=== PATIENT | male | born 1955 | race Caucasian/White ===

== ENCOUNTER 2016-12-28 10:51 | Inpatient (IN) | payer OTHER ==
--- NOTE | 2016-12-28 11:10 | ED PDOC ---
Arrival/HPI - General Historian: Patient, Family, EMS - General Time Seen by Provider: 12/28/16 10:59 - History of Present Illness Narrative History of Present Illness (Text): 12/28/16 11:07 61 y/o male, pmh including gastritis/internal and external hemorrhoid/chronic on and off chest pain, biba c/o fatigue and tired x 3 days. Pt. had endoscope and colonoscopy done earlier this year show he has moderate gastritis and esophogitis along with internal/external hemorrhoids, seen by Dr. Trivedi about 6 days ago show hgb 7.9 which advised him to come to the ER. Pt. was at home this morning feeling fatigue, tired and almost passed out which caught him and call the ambulance to come to the ER. Pt. has no head or neck injury, no loss of consciousness, able to recall the whole event, stated that he has bloody bleeding from the rectum region with no rectal pain, no abdominal pain. Pt. has no abdominal pain, no chest pain or shortness of breath, no night sweat , no dizziness, no numbness or tingling, no other medical or psychological complaints. (Kenton Santos) Past Medical History - Provider Review Nursing Documentation Reviewed: Yes Family/Social History - Physician Review Nursing Documentation Reviewed: Yes Family/Social History: Unknown Family HX Allergies/Home Meds Allergies/Adverse Reactions: Allergies No Known Allergies Allergy (Verified 12/28/16 11:12) Home Medications: Home Meds Medication Instructions Recorded Confirmed Unobtainable 12/28/16 12/28/16 Review of Systems - Review of Systems Constitutional: Fatigue. absent: Fevers Eyes: absent: Vision Changes ENT: absent: Hearing Changes Respiratory: absent: SOB, Cough Cardiovascular: absent: Chest Pain, Palpitations Gastrointestinal: absent: Abdominal Pain, Nausea, Vomiting Musculoskeletal: absent: Arthralgias, Back Pain Skin: absent: Rash, Pruritis Neurological: absent: Headache, Dizziness Psychiatric: absent: Anxiety, Depression Physical Exam - Systems Exam Head: Present: Atraumatic, Normocephalic Pupils: Present: PERRL Extroacular Muscles: Present: EOMI Conjunctiva: Present: Normal Mouth: Present: Moist Mucous Membranes Neck: Present: Normal Range of Motion Respiratory/Chest: Present: Clear to Auscultation, Good Air Exchange. No: Respiratory Distress, Accessory Muscle Use Cardiovascular: Present: Regular Rate and Rhythm, Normal S1, S2. No: Murmurs Abdomen: Present: Normal Bowel Sounds. 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 Guaiac negative. ). No: Occult Blood, Rectal Tenderness, Gross Blood, Melena, Fissures, Nodule/Mass/Lesions Back: Present: Normal Inspection Upper Extremity: Present: Normal Inspection. No: Cyanosis, Edema Lower Extremity: Present: Normal Inspection. No: Edema Neurological: Present: GCS=15, CN II-XII Intact, Speech Normal Skin: Present: Warm, Dry, Cold, Pale. No: Rashes, Normal Color Psychiatric: Present: Alert, Oriented x 3, Normal Insight, Normal Concentration Vital Signs Temp Pulse Resp BP Pulse Ox 12/28/16 15:21 97.9 F 70 18 141/80 12/28/16 14:46 98.1 F 68 17 137/75 12/28/16 14:31 98.2 F 71 18 144/73 12/28/16 12:45 69 18 125/71 98 12/28/16 11:55 75 18 128/75 98 12/28/16 10:51 97.9 F 78 18 130/80 100 Medical Decision Making - Lab Interpretations I have reviewed the lab results: Yes Interpretation: Abnormal lab values (hgb 7.7) - RAD Interpretation Precision Dancer: Radiologist - EKG Interpretation Interpreted by ED Physician: Yes Type: 12 lead EKG ED Course and Treatment: 12/28/16 12:52 Patient seen and evaluated with PA. In ED he is not hypotensive or tachycardic with monitoring. Abdomen is soft and nontender. Hemorrhoids noted on exam but no active bleeding noted currently. He is currently neurologically intact. Denies chest pain or sob. EKG unremarkable. Patient is noted to be anemic, in light of bleeding history and syncope will admit to telemetry bed and transfuse patient. [facility] 12/28/16 11:11 -labs/ua/type and screen -ekg -chest xray -IVF -Guaiac negative, there is no active bleeding. -Fall Risk Protocol 12/28/16 12:31 -EKG: NSR @ 67 BPM, no ST elevation or depression, no T wave inversion. -Chest xray show: no active diseaase -Labs are non-significant except: Hgb 7.7 -Blood transfusion verbal and written consent obtained and signed by the patient. -IV pepcid/benadryl/tylenol ordered. -Dr. Trivedi paged for admission to telemetry. -Case discussed and examined with DR. Elkins, he agreed on the admission and will put in the admission order. 12/28/16 12:36 -I spoke to Dr. Trivedi, discussed about the case/labs/radiology result, awared of the care and knows the patient, request Dr. Napier as routine consult, agreed on the 2 units of PRBC -I discussed with the patient/family and agreed to be admitted. . 12/28/16 15:51 -UA show no UTI. (Kenton Santos) - Lab Interpretations Lab Results: 12/28/16 11:53 12/28/16 11:53 Lab Results 12/28/16 11:53: Blood Type A NEGATIVE, Antibody Screen Negative, Crossmatch See Detail, BBK History Checked No verified bt 12/28/16 11:53: Sodium 140, Potassium 4.5, Chloride 106, Carbon Dioxide 25, Anion Gap 14, BUN 17, Creatinine 1.1, Est GFR ( Amer) > 60, Est GFR (Non- Af Amer) > 60, Random Glucose 85, Calcium 8.6, Total Bilirubin 0.4, AST 30, ALT 29, Alkaline Phosphatase 38, Lactate Dehydrogenase 341, Total Creatine Kinase 105, Troponin I < 0.01, NT-Pro-B Natriuret Pep 145, Total Protein 6.8, Albumin 4.0, Globulin 2.9, Albumin/Globulin Ratio 1.4 12/28/16 11:53: PT 10.6, INR 0.98, APTT 20.8 L 12/28/16 11:53: WBC 5.7, RBC 3.61, Hgb 7.7 L, Hct 25.4 L, MCV 70.4 L, MCH 21.3 L , MCHC 30.3 L, RDW 15.7 H, Plt Count 251, MPV 9.4, Gran % 75.4 H, Lymph % (Auto ) 18.1 L, [place] % (Auto) 5.5, Eos % (Auto) 0.5 L, Baso % (Auto) 0.5, Gran # 4.28 , Lymph # 1.0 L, [place] # 0.3, Eos # 0.0, Baso # 0.03 - RAD Interpretation Radiology Orders: 12/28/16 11:22 CHEST PORTABLE [RAD] Stat HISTORY: medical clearance COMPARISON: No prior. FINDINGS: LUNGS: No active pulmonary disease. PLEURA: No significant pleural effusion identified, no pneumothorax apparent. CARDIOVASCULAR: Normal. OSSEOUS STRUCTURES: No significant abnormalities. VISUALIZED UPPER ABDOMEN: Normal. OTHER FINDINGS: None. IMPRESSION: No active disease. (Kenton Santos) - EKG Interpretation EKG Interpretation (Text): 12/28/16 12:07 NSR @ 67 BPM, no ST elevation or depression, no T wave inversion. (Kenton Santos) - Medication Orders Current Medication Orders: Sodium Chloride (Sodium Chloride 0.9%) 1,000 mls @ 100 mls/hr IV .Q10H TRACI Last Admin: 12/28/16 12:44 Dose: 100 mls/hr eMAR Start Stop Document 12/28/16 12:44 AB (Rec: 12/28/16 12:44 AB [id number]) Intravenous Solution Start Date 12/28/16 Start Time 12:44 End Date 12/28/16 Discontinued Medications Acetaminophen (Tylenol 325mg Tab) 650 mg PO ONCE STA Stop: 12/28/16 12:28 Last Admin: 12/28/16 12:41 Dose: 650 mg MAR Pain/Vitals Document 12/28/16 12:41 AB (Rec: 12/28/16 12:44 AB [id number]) Pain Reassessment Is This A Pain ReAssessment? No Sleep Is patient sleeping during reassessment? No Presence of Pain Presence of Pain No Diphenhydramine HCl (Benadryl) 25 mg PO ONCE ONE Stop: 12/28/16 12:28 Last Admin: 12/28/16 12:44 Dose: 25 mg Famotidine (Pepcid) 20 mg IVP STAT STA Stop: 12/28/16 11:48 Last Admin: 12/28/16 12:14 Dose: 20 mg IVP Administration Document 12/28/16 12:14 AB (Rec: 12/28/16 12:15 AB [id number]) Charges for Administration # of IVP Administrations 1 Sodium Chloride (Sodium Chloride 0.9%) 1,000 mls @ 1,000 mls/hr IV .Q1H STA Stop: 12/28/16 12:46 Last Admin: 12/28/16 12:15 Dose: 1,000 mls/hr eMAR Start Stop Document 12/28/16 12:15 AB (Rec: 12/28/16 12:16 AB [id number]) Intravenous Solution Start Date 12/28/16 Start Time 12:15 End Date 12/28/16 End time 13:15 Total Infusion Time 60 - PA / WORSHIP DIRECTOR / Resident Statement MD/DO has reviewed & agrees with the documentation as recorded. MD/DO has examined the patient and agrees with the treatment plan. Disposition/Present on Arrival - Present on Arrival Any Indicators Present on Arrival: No History of DVT/PE: No History of Uncontrolled Diabetes: No Urinary Catheter: No History of Decub. Ulcer: No - Disposition Have Diagnosis and Disposition been Completed?: Yes Disposition Time: 12:09 Patient Plan: Admission - Disposition Diagnosis: Signs and symptoms of anemia, Near syncope Disposition: HOSPITALIZED Patient Problems: Current Active Problems Problem Status Onset Near syncope Acute Signs and symptoms of anemia Acute Condition: GUARDED
[2016-12-28 11:41] VITALS: BMI 33.6
[2016-12-28] MEDS ORDERED: Sodium Chloride 0.9% 1,000 ML IV STA (11:47)
[2016-12-28 11:58] LABS: BASO # 0.03 K/mm3 (0.0-2.0); BASO % 0.5 % (0.0-3.0); EOS % 0.5 % (1.5-5.0); GRAN # 4.28 (1.4-6.5); GRAN % 75.4 % (50.0-68.0); HEMATOCRIT 25.4 % (42.0-52.0); LYMPH % 18.1 % (22.0-35.0); MEAN CELL VOLUME 70.4 fl (80.0-105.0); MEAN CORPUSCULAR HEMOGLOBIN 21.3 pg (25.0-35.0); MEAN CORPUSCULAR HGB CONC 30.3 g/dl (31.0-37.0); MEAN PLATELET VOLUME 9.4 fl (7.0-11.0); MONO # 0.3 (0.1-0.6); MONO % 5.5 % (1.0-6.0); RED CELL DISTRIBUTION WIDTH 15.7 % (11.5-14.5); WHITE BLOOD COUNT 5.7 10^3/ul (4.5-11.0)
[2016-12-28 12:07] LABS: ALB/GLOB RATIO 1.4 (1.1-1.8); ALKALINE PHOSPHATASE 38 U/L (38-126); ALT/SGPT 29 U/L (7-56); AST/SGOT 30 U/L (17-59); BILIRUBIN,TOTAL 0.4 mg/dL (0.2-1.3); BLOOD UREA NITROGEN 17 mg/dL (7-21); CALCIUM 8.6 mg/dL (8.4-10.5); CARBON DIOXIDE 25 mmol/L (21-33); CHLORIDE 106 mmol/L (98-107); GFR AFRICAN-AMERICAN > 60; GLUCOSE,RANDOM 85 mg/dL (70-110); POTASSIUM 4.5 mmol/L (3.6-5.0); SODIUM 140 mmol/L (132-148); TOTAL PROTEIN 6.8 g/dL (5.8-8.3)
[2016-12-28 12:08] LABS: INR 0.98 (0.93-1.08); PARTIAL THROMBOPLASTIN TIME 20.8 Seconds (23.7-30.8)
[2016-12-28 12:19] LABS: TROPONIN I < 0.01 ng/mL
[2016-12-28] MEDS: Sodium Chloride 0.9% 1,000 ML IV SCH ×2 (12:44→23:24)
--- NOTE | 2016-12-28 12:45 | RAD ---
HISTORY: medical clearance COMPARISON: No prior. FINDINGS: LUNGS: No active pulmonary disease. PLEURA: No significant pleural effusion identified, no pneumothorax apparent. CARDIOVASCULAR: Normal. OSSEOUS STRUCTURES: No significant abnormalities. VISUALIZED UPPER ABDOMEN: Normal. OTHER FINDINGS: None. IMPRESSION: No active disease.
[2016-12-28 15:46] LABS: URINE APPEARANCE CLEAR (CLEAR); URINE BILIRUBIN NEGATIVE (NEGATIVE); URINE BLOOD NEGATIVE (NEGATIVE); URINE COLOR YELLOW (YELLOW); URINE GLUCOSE (UA) NEGATIVE (NEGATIVE); URINE KETONE NEGATIVE (NEGATIVE); URINE LEUKOCYTE ESTERASE NEGATIVE Leu/uL (NEGATIVE); URINE PROTEIN NEGATIVE mg/dL (<30 mg/dL); URINE UROBILINOGEN 0.2 E.U./dL (<1 E.U./dL)
--- NOTE | 2016-12-28 19:11 | CARD ---
APPROVED REPORT EKG Measurement Heart [id number] <Conclusion> Normal sinus rhythm Normal ECG
[2016-12-28] MEDS ORDERED: Pneumococcal 23-Valent Vaccine IM ONE (19:28)
[2016-12-28] MEDS ORDERED: Iohexol 240 (50 ml) ONE (20:51)
--- NOTE | 2016-12-28 23:33 | HP ---
HISTORY OF PRESENT ILLNESS: The patient is 61 years old, known to me from office practice. The patient went to Dr. Napier almost a week ago because he was complaining of rectal bleeding off and on going on for two months. He went to see Dr. Napier because he was having palpitation and shortness of breath. Dr. Napier referred him to me to check him out if he is not anemic. We did his blood work. His hemoglobin was found to be 7.9 in office. He was advised to go to emergency room for possible blood transfusion, but because of his job situation he could not go, so he showed up to emergency room today for further evaluation. The patient states he has been having intermittent rectal bleeding going on for 2 months, he states same thing happened in the past. Denies any abdominal pain. No history of nausea or vomiting. Complains of having constipation of unknown. The patient's last colonoscopy was 12/05/2012, it was done by Dr. Kyle Devine in [place], [place]. At that point, he was told that he has gastroesophageal reflux disease and he has external and internal hemorrhoids; otherwise, there was no other significant finding. PAST MEDICAL HISTORY: His significant past medical history for: 1. Hyperlipidemia. 2. Gout. 3. Hypertension. 4. Benign prostatic hypertrophy. 5. Chronic left knee pain. 6. History of depression. ALLERGIES: HE IS NOT ALLERGIC TO ANY MEDICATIONS. PAST SURGICAL HISTORY: He never had surgery in the past. 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 Denies smoking, drinking, or alcohol use. MEDICATIONS: Medication at home, he is on: 1. Voltaren gel. 2. Zoloft 50 mg daily. 3. Flomax 0.4 daily. 4. Enalapril 10 mg daily. 5. Allopurinol 300 daily 6. Mobic 15 mg daily. 7. Simvastatin 20 mg daily. REVIEW OF SYSTEMS: Significant for rectal discomfort and constipation at time, complaint of having generalized weakness and shortness of breath. PHYSICAL EXAMINATION: GENERAL: On examination, he is awake and alert, communicative. VITAL SIGNS: He is afebrile. Pulse 82, respirations 20, blood pressure 152/86. LUNGS: Bilateral fair airflow. No rhonchi or crackles. HEART: S1 and S2 audible. ABDOMEN: Soft, nontender. No rebound or guarding. NEUROLOGICAL: The patient is awake and alert, communicative, ambulatory. LABORATORY EXAM: WBC 5.7, hemoglobin 7.7, hematocrit 25.4, platelet of 251. PT is 10.6, INR 0.98. Chemistry, sodium 140, potassium 4.5, chloride 106, CO2 25, BUN 17, creatinine 1.1. Blood sugar of 85. LFTs are within normal limit. Urinalysis is unremarkable. X-ray chest is unremarkable. ASSESSMENT: 1. Symptomatic anemia secondary to rectal bleeding. His last colonoscopy was back in 11/2012. He was found to have internal and external hemorrhoid. 2. Hypertension. 3. Hyperlipidemia. 4. History of gout. PLAN: We will transfuse two packed RBCs. Resume his medications. I will request Dr. Felton to see, evaluate the patient for rectal bleeding. We will follow up his CBC and CMP in a.m. Milton Trivedi MD
--- NOTE | 2016-12-29 00:18 | CT ---
EXAM: CT Abdomen and Pelvis Without Intravenous Contrast CLINICAL HISTORY: 61 years old, male; Signs and symptoms; Other: Rectal bleeding TECHNIQUE: Axial computed tomography images of the abdomen and pelvis without intravenous contrast. All CT scans at this facility use one or more dose reduction techniques, viz.: automated exposure control; ma/kV adjustment per patient size (including targeted exams where dose is matched to indication; i.e. head); or iterative reconstruction technique. Coronal and sagittal reformatted images were created and reviewed. COMPARISON: No relevant prior studies available. FINDINGS: Limitations: Lack of intravenous contrast. Lower thorax: Mild cardiomegaly. RIGHT middle lobe calcified granuloma. ABDOMEN: Liver: Unremarkable. Gallbladder and bile ducts: No calcified stones. No ductal dilation. Pancreas: Unremarkable. No ductal dilation. Spleen: No splenomegaly. Adrenals: No mass. Kidneys and ureters: Several renal calculi. Probable RIGHT renal cyst. No hydronephrosis. Stomach and bowel: Few scattered diverticula within colon. No associated inflammatory stranding. No definite mural thickening. No obstruction. Appendix: Normal caliber. No inflammation. PELVIS: Bladder: 0.8 x 0.9 x 0.7 cm calculus vs calcified lesion within bladder. Reproductive: Enlarged prostate gland. ABDOMEN and PELVIS: Intraperitoneal space: No significant fluid collection. No free air. Bones/joints: Degenerative changes of spine. No acute fracture. Soft tissues: Small RIGHT inguinal hernia containing fat. Vasculature: Mild atherosclerotic disease. No aneurysm. Lymph nodes: Multiple calcification or calcified lymph nodes within mesentery. IMPRESSION: 1. Nonobstructing renal calculi. 2. Bladder calculus vs calcified lesion. Clinical correlation is needed. 3. Incidental/non-acute findings are described above.
[2016-12-29 00:49] VITALS: RESP 18
[2016-12-29 06:16] VITALS: O2SAT 99
[2016-12-29 06:18] LABS: BASO # 0.05 K/mm3 (0.0-2.0); BASO % 0.8 % (0.0-3.0); EOS # 0.2 (0.0-0.7); EOS % 2.6 % (1.5-5.0); GRAN # 4.09 (1.4-6.5); GRAN % 67.4 % (50.0-68.0); LYMPH # 1.4 (1.2-3.4); LYMPH % 22.4 % (22.0-35.0); MEAN CELL VOLUME 72.9 fl (80.0-105.0); MEAN CORPUSCULAR HEMOGLOBIN 22.9 pg (25.0-35.0); MEAN CORPUSCULAR HGB CONC 31.4 g/dl (31.0-37.0); MEAN PLATELET VOLUME 9.5 fl (7.0-11.0); MONO # 0.4 (0.1-0.6); MONO % 6.8 % (1.0-6.0); RED CELL DISTRIBUTION WIDTH 16.3 % (11.5-14.5); WHITE BLOOD COUNT 6.1 10^3/ul (4.5-11.0)
[2016-12-29 06:41] LABS: ALB/GLOB RATIO 1.4 (1.1-1.8); ALKALINE PHOSPHATASE 39 U/L (38-126); ALT/SGPT 21 U/L (7-56); AST/SGOT 24 U/L (17-59); BILIRUBIN,TOTAL 0.7 mg/dL (0.2-1.3); BLOOD UREA NITROGEN 16 mg/dL (7-21); CALCIUM 8.4 mg/dL (8.4-10.5); CARBON DIOXIDE 24 mmol/L (21-33); CHLORIDE 108 mmol/L (98-107); CHOLESTEROL 137 mg/dL (130-200); GFR AFRICAN-AMERICAN > 60; GLUCOSE,RANDOM 98 mg/dL (70-110); MAGNESIUM 1.9 mg/dL (1.7-2.2); PHOSPHOROUS 3.8 mg/dL (2.5-4.5); POTASSIUM 4.1 mmol/L (3.6-5.0); SODIUM 141 mmol/L (132-148); TOTAL PROTEIN 6.4 g/dL (5.8-8.3)
--- NOTE | 2016-12-29 08:47 | CON ---
DATE: 12/28/2016 REASON FOR CONSULTATION: Follow up rectal bleed, after that the patient had felt dizzy and fell down in the bathroom. Cardiac evaluation, rule out syncope. BRIEF CLINICAL HISTORY: This is a 61-year-old male with a past medical history significant for hemorrhoid and chronic bleeding from the hemorrhoid, it is off and on; recently, the patient had more bleeding and dropped the hemoglobin to 7.7. This morning, the patient went to the bathroom, felt dizzy and fell down, was brought here. Denies any chest pain, shortness of breath, any palpitations, but though recently the patient is complaining of some dyspnea on exertion, but denies any chest pain. PAST MEDICAL HISTORY: Significant for hypertension, but off medication because the patient is running low blood pressure. SOCIAL HISTORY: Denies smoking. Denies any history of alcohol abuse. PAST SURGICAL HISTORY: No significant history of surgery except the patient had a colonoscopy and biopsy done of the hemorrhoid. The patient had endoscopy earlier at the beginning of this year, has gastritis and esophagitis and also hemorrhoid. FAMILY HISTORY: No history of definite coronary artery disease. CURRENT MEDICATIONS: The patient is supposed to take antihypertensive medication, but since the patient has had low blood pressure, he stopped taking the medication. REVIEW OF SYSTEMS: As per HPI. PHYSICAL EXAMINATION: As follows, VITAL SIGNS: Temperature afebrile, heart rate 82, blood pressure 152/86. HEENT: PERRLA intact. NECK: Supple. No carotid bruit or thyromegaly. CHEST: Clear to auscultation. HEART: S1 and S2 regular. ABDOMEN: Soft. EXTREMITIES: Clubbing and cyanosis negative. LABORATORY DATA: EKG shows normal sinus at 67. Blood workup as follows: WBC , hemoglobin 7.7, hematocrit 25.7, and platelet count 251. Chemistry shows sodium 140, potassium 4.0, chloride 105, carbon dioxide 27, anion gap 14, BUN 17, creatinine 1.1. Troponin 0.01. IMPRESSION: Severe anemia, gastrointestinal bleed, rectal bleed, syncope, near syncope felt secondary to orthostatic hypotension secondary to gastrointestinal bleed. RECOMMENDATION: Monitor H and H. If it goes below 7, consider packed RBCs transfusion. GI evaluation. We will get echo to assess LV function. I doubt he has a coronary event. We will follow with you. We will get echo. Once the hemoglobin is around 10 and stops bleeding, we will further discuss as outpatient. Thank you for providing me the opportunity in taking care of Mr. Forrest Thomas. We will get lipid profile, TSH, hemoglobin A1c. Continue IV fluid for now. Audie Alvarez MD
[2016-12-29] MEDS: Sodium Chloride 0.9% 1,000 ML IV SCH (09:39)
[2016-12-29] MEDS ORDERED: POLYETHYLENE GLYCOL 3350 17 GM/Dose PACKET PO SCH (10:00)
--- NOTE | 2016-12-29 11:32 | CP.PCM.PCO ---
Physician Communication Note - Physician Communication Note Physician Communication Note: Severe Hemorrhoidal bleeding-anemia(2UPRBC)-needs hemorrhoidectomy!
--- NOTE | 2016-12-29 11:43 | CP.PCM.CON ---
<Ann-Marie Almaraz - Last Filed: 12/29/16 13:53> History of Present Illness - History of Present Illness History of Present Illness: Seen and examined at the bed earlier today, the was reviewed. Request for GI consult is for GI bleed. HPI: This is a 61-year-o with a past medical hyperlipidemia, chronic knee pain , hypertension, gout, was sent to the emergency room by a traffic court referee for abnormal lab. The patient had been complaining for 2 months, had blood work, and found to have a hemoglobin of 7.9. The patient denies nausea, vomiting, or abdominal pain. He did state that he had passed out in bathroom and had a bloody BM at one time. He endorses that he had a bloody BM this am. He had a colonoscopy November 2012,, it was done in [facility] by Dr. Kyle Bay. He was told he had internal and external and also had GERD. Denies weight loss, anorexia, SOB or chest pain. He did feel weak and tired prior to admission. He denies NSAID use, he is on meloxicam for bone pain. On rectal exam in ER patient was found to have hemorrhoids, no acute findings. He received 2 units of packed RBC last night . had CT scan on admission revealing diverticulosis, bladder calculus, calcified lymph nodes, no acute abdominal findings. Past medical history:Gout, hypertension, BPH, Hemorrhoids, Chronic left knee pain,, hyperlipidemia, history of depression Past surgical history: Denies Family history: Noncontributory Allergies: No known drug allergies Social history: Denies smoking, EtOH or substance abuse Medications: Reviewed as per MAR. ROS: Systems review took positive finding see HPI Past Patient History - Past Social History Smoking Status: Never Smoked - CARDIAC Hx Cardiac Disorders: Yes (chronic intermittent chest pain) Hx Hypercholesterolemia: Yes Hx Hypertension: Yes - PULMONARY Hx Respiratory Disorders: No - NEUROLOGICAL Hx Neurological Disorder: No - HEENT Hx HEENT Problems: No - RENAL Hx Kidney Stones: Yes ("yrs ago") - ENDOCRINE/METABOLIC Hx Endocrine Disorders: No - HEMATOLOGICAL/ONCOLOGICAL Hx Anemia: Yes - INTEGUMENTARY Hx Dermatological Problems: No - MUSCULOSKELETAL/RHEUMATOLOGICAL Hx Falls: Yes (fell today in bathroom) - GASTROINTESTINAL Hx Gastrointestinal Disorders: Yes (gastritis, hemorrhoids internal and external ) Other/Comment: rectal bleeding on and off x 5 yrs from hemorrhoids - GENITOURINARY/GYNECOLOGICAL Hx Prostate Problems: Yes (elevated psa/enlarged/bx neg) - PSYCHIATRIC Hx Substance Use: No - SURGICAL HISTORY Hx Surgeries: Yes (hemorrhoid bx, prostate bx) - ANESTHESIA Hx Anesthesia: No Hx Anesthesia Reactions: No Hx Malignant Hyperthermia: No Meds Allergies/Adverse Reactions: Allergies Allergy/AdvReac Type Severity Reaction Status Date / Time No Known Allergies Allergy Verified 12/28/16 11:12 - Medications Medications: Current Medications Acetaminophen (Tylenol 325mg Tab) 650 mg PO Q6H PRN PRN Reason: Fever >100.4 F Sodium Chloride (Sodium Chloride 0.9%) 1,000 mls @ 100 mls/hr IV .Q10H [facility] Last Admin: 12/29/16 09:39 Dose: 100 mls/hr Lisinopril (Zestril) 10 mg PO DAILY [facility] Last Admin: 12/29/16 09:39 Dose: 10 mg Pantoprazole Sodium (Protonix Inj) 40 mg IVP DAILY [facility] Polyethylene Glycol (Miralax) 17 gm PO DAILY [facility] Last Admin: 12/29/16 09:40 Dose: 17 gm Sertraline HCl (Zoloft) 50 mg PO DAILY [facility] Last Admin: 12/29/16 09:39 Dose: 50 mg Tamsulosin HCl (Flomax) 0.4 mg PO DAILY [facility] Last Admin: 12/29/16 09:39 Dose: 0.4 mg Physical Exam - Constitutional Appears: No Acute Distress - Head Exam Head Exam: NORMOCEPHALIC - Eye Exam Eye Exam: Normal appearance. absent: Scleral icterus - ENT Exam ENT Exam: Mucous Membranes Moist - Neck Exam Neck exam: Positive for: Normal Inspection - Respiratory Exam Respiratory Exam: NORMAL BREATHING PATTERN. absent: Respiratory Distress - Cardiovascular Exam Cardiovascular Exam: +S1, +S2 - GI/Abdominal Exam GI & Abdominal Exam: Normal Bowel Sounds, Soft. absent: Guarding, Organomegaly , Tenderness - Neurological Exam Neurological exam: Alert, Oriented x3 - Skin Skin Exam: Dry (thank you thanks), Warm (U with their already good.) Results - Vital Signs Recent Vital Signs: Last Vital Signs Temp 98.7 F 12/29/16 06:00 Pulse 76 12/29/16 09:39 Resp 18 12/29/16 06:00 BP 119/84 12/29/16 09:39 Pulse Ox 99 12/29/16 06:00 - Labs Result Diagrams: 12/29/16 05:30 12/29/16 05:30 Labs: Laboratory Results - last 24 hr 12/28/16 12/29/16 12/29/16 15:30 05:30 05:30 WBC 6.1 RBC 3.98 Hgb 9.1 L Hct 29.0 L MCV 72.9 L MCH 22.9 L MCHC 31.4 RDW 16.3 H Plt Count 219 MPV 9.5 Gran % 67.4 Lymph % (Auto) 22.4 [place] % (Auto) 6.8 H Eos % (Auto) 2.6 Baso % (Auto) 0.8 Gran # 4.09 Lymph # 1.4 Richardson # 0.4 Eos # 0.2 Baso # 0.05 Sodium 141 Potassium 4.1 Chloride 108 H Carbon Dioxide 24 Anion Gap 13 BUN 16 Creatinine 1.3 Est GFR ( Amer) > 60 Est GFR (Non-Af Amer) 57 Random Glucose 98 Calcium 8.4 Phosphorus 3.8 Magnesium 1.9 Total Bilirubin 0.7 AST 24 ALT 21 Alkaline Phosphatase 39 Total Protein 6.4 Albumin 3.7 Globulin 2.7 Albumin/Globulin Ratio 1.4 Triglycerides 73 Cholesterol 137 LDL Cholesterol Direct 65 HDL Cholesterol 61 H TSH 3rd Generation Urine Color Yellow Urine Appearance Clear Urine pH 6.0 Ur Specific [place] 1.010 Urine Protein Negative Urine Glucose (UA) Negative Urine Ketones Negative Urine Blood Negative Urine Nitrate Negative Urine Bilirubin Negative Urine Urobilinogen 0.2 Ur Leukocyte Esterase Negative 12/29/16 05:30 WBC RBC Hgb Hct MCV MCH MCHC RDW Plt Count MPV Gran % Lymph % (Auto) [place] % (Auto) Eos % (Auto) Baso % (Auto) Gran # Lymph # [place] # Eos # Baso # Sodium Potassium Chloride Carbon Dioxide Anion Gap BUN Creatinine Est GFR ( Amer) Est GFR (Non-Af Amer) Random Glucose Calcium Phosphorus Magnesium Total Bilirubin AST ALT Alkaline Phosphatase Total Protein Albumin Globulin Albumin/Globulin Ratio Triglycerides Cholesterol LDL Cholesterol Direct HDL Cholesterol TSH 3rd Generation 7.65 H Urine Color Urine Appearance Urine pH Ur Specific [place] Urine Protein Urine Glucose (UA) Urine Ketones Urine Blood Urine Nitrate Urine Bilirubin Urine Urobilinogen Ur Leukocyte Esterase Assessment & Plan - Assessment and Plan (Free Text) Assessment: ASSESSMENT: GI Bleed, rule out peptic ulcer disease, colon polyps, malignancy Anemia Syncope Chronic left knee pain HTN HLD Hemorrhoids GERD PLAN: Continue PPI Clear liquid diet monitor H&H pending echo Patient would benefit from EGD and colonoscopy, we will discuss with cardiology , if cleared we will plan for tomorrow if patient is optimal. Thank you for this consult and for allowing us to participate in patient's care , further recommendations based upon clinical course. Seen and discussed with Dr. Felton. <Yeyo Felton V - Last Filed: 12/29/16 23:07> Results - Vital Signs Recent Vital Signs: Last Vital Signs Temp 98.3 F 12/29/16 17:02 Pulse 74 12/29/16 17:02 Resp 18 12/29/16 17:02 BP 116/68 12/29/16 17:02 Pulse Ox 99 12/29/16 12:00 - Labs Result Diagrams: 12/29/16 05:30 12/29/16 05:30 Labs: Laboratory Results - last 24 hr 12/29/16 12/29/16 12/29/16 05:30 05:30 05:30 WBC 6.1 RBC 3.98 Hgb 9.1 L Hct 29.0 L MCV 72.9 L MCH 22.9 L MCHC 31.4 RDW 16.3 H Plt Count 219 MPV 9.5 Gran % 67.4 Lymph % (Auto) 22.4 [place] % (Auto) 6.8 H Eos % (Auto) 2.6 Baso % (Auto) 0.8 Gran # 4.09 Lymph # 1.4 Richardson # 0.4 Eos # 0.2 Baso # 0.05 Sodium 141 Potassium 4.1 Chloride 108 H Carbon Dioxide 24 Anion Gap 13 BUN 16 Creatinine 1.3 Est GFR ( Amer) > 60 Est GFR (Non-Af Amer) 57 Random Glucose 98 Calcium 8.4 Phosphorus 3.8 Magnesium 1.9 Total Bilirubin 0.7 AST 24 ALT 21 Alkaline Phosphatase 39 Total Protein 6.4 Albumin 3.7 Globulin 2.7 Albumin/Globulin Ratio 1.4 Triglycerides 73 Cholesterol 137 LDL Cholesterol Direct 65 HDL Cholesterol 61 H TSH 3rd Generation 7.65 H Attending/Attestation - Attestation I have personally seen and examined this patient.: Yes I have fully participated in the care of the patient.: Yes I have reviewed all pertinent clinical information: Yes Notes (Text): This is an addendum to GI progress report dictated by Ann-Marie Almaraz APN.The patient was seen and examined earlier. Medical records, lab studies, imagings were reviewed. Last 24 hours events reviewed. Agreed with the above treatment plan as outlined in Ann-Marie Almaraz APN's notes the with the addition of the following On examination abdomen soft and tenderness Had a detailed discussion the patient patient did have a colonoscopy in the past year. Patient is been taking nonsteroidal anti-inflammatory drugs and other possible etiologies should consider is upper GI bleeding Patient does have significant intermittent episodes of bright her prep rectum that could be from hemorrhoids In view of the history of using on and sterile anti-inflammatory drugs she would benefit from endoscopy and also colonoscopy to further evaluate the severe anemia The patient at length regarding the need for GI workup 12/29/16 23:03
--- NOTE | 2016-12-29 14:54 | CP.PCM.CON ---
<Georgina Sahu - Last Filed: 12/29/16 14:47> History of Present Illness - History of Present Illness History of Present Illness: Surgery Consult Note for Dr. Talley Patient is a 61 year old Male that presented to the ED yesterday due to a syncopal episode from painless bright red rectal bleeding. He reports a history of painless rectal bleeding for the past 2 months with the last episode being 3 weeks ago and colonoscopy revealing internal and external hemorrhoids. Denies any rectal pain or issues with bowel movements. ROS: Denies any lightheadedness, fevers, chills, night sweats, chest pain or palpitations, shortness of breath, nausea, vomiting, or diarrhea. PMH: BPH, Gout, HLD, HTN, Depression PSH: None Allergies: NKDA Social History: Denies alcohol use or smoking. Past Patient History - Past Social History Smoking Status: Never Smoked - CARDIAC Hx Cardiac Disorders: Yes (chronic intermittent chest pain) Hx Hypercholesterolemia: Yes Hx Hypertension: Yes - PULMONARY Hx Respiratory Disorders: No - NEUROLOGICAL Hx Neurological Disorder: No - HEENT Hx HEENT Problems: No - RENAL Hx Kidney Stones: Yes ("yrs ago") - ENDOCRINE/METABOLIC Hx Endocrine Disorders: No - HEMATOLOGICAL/ONCOLOGICAL Hx Anemia: Yes - INTEGUMENTARY Hx Dermatological Problems: No - MUSCULOSKELETAL/RHEUMATOLOGICAL Hx Falls: Yes (fell today in bathroom) - GASTROINTESTINAL Hx Gastrointestinal Disorders: Yes (gastritis, hemorrhoids internal and external ) Other/Comment: rectal bleeding on and off x 5 yrs from hemorrhoids - GENITOURINARY/GYNECOLOGICAL Hx Prostate Problems: Yes (elevated psa/enlarged/bx neg) - PSYCHIATRIC Hx Substance Use: No - SURGICAL HISTORY Hx Surgeries: Yes (hemorrhoid bx, prostate bx) - ANESTHESIA Hx Anesthesia: No Hx Anesthesia Reactions: No Hx Malignant Hyperthermia: No Meds Allergies/Adverse Reactions: Allergies Allergy/AdvReac Type Severity Reaction Status Date / Time No Known Allergies Allergy Verified 12/28/16 11:12 - Medications Medications: Current Medications Acetaminophen (Tylenol 325mg Tab) 650 mg PO Q6H PRN PRN Reason: Fever >100.4 F Sodium Chloride (Sodium Chloride 0.9%) 1,000 mls @ 100 mls/hr IV .Q10H [facility] Last Admin: 12/29/16 09:39 Dose: 100 mls/hr Levothyroxine Sodium (Synthroid) 25 mcg PO 0600 [facility] Lisinopril (Zestril) 10 mg PO DAILY [facility] Last Admin: 12/29/16 09:39 Dose: 10 mg Pantoprazole Sodium (Protonix Inj) 40 mg IVP DAILY [facility] Last Admin: 12/29/16 12:51 Dose: 40 mg Polyethylene Glycol (Miralax) 17 gm PO DAILY [facility] Last Admin: 12/29/16 09:40 Dose: 17 gm Polyethylene Glycol/Electrolytes (Golytely) 4,000 ml PO ONCE ONE Stop: 12/29/16 16:01 Sertraline HCl (Zoloft) 50 mg PO DAILY [facility] Last Admin: 12/29/16 09:39 Dose: 50 mg Tamsulosin HCl (Flomax) 0.4 mg PO DAILY [facility] Last Admin: 12/29/16 09:39 Dose: 0.4 mg Physical Exam - Constitutional Appears: Non-toxic, No Acute Distress - Head Exam Head Exam: ATRAUMATIC, NORMOCEPHALIC - Eye Exam Eye Exam: EOMI. absent: Conjunctival injection - Neck Exam Neck exam: Positive for: Full Rom - Respiratory Exam Respiratory Exam: absent: Accessory Muscle Use, Respiratory Distress - Cardiovascular Exam Cardiovascular Exam: Tachycardia - GI/Abdominal Exam GI & Abdominal Exam: Soft. absent: Guarding, Rebound, Rigid, Tenderness - Rectal Exam Rectal Exam: Hemorrhoids (internal and external non-tender). absent: Bloody Stool - Extremities Exam Extremities exam: Positive for: full ROM. Negative for: pedal edema - Neurological Exam Neurological exam: Alert, Oriented x3 - Skin Skin Exam: Dry, Intact, Normal Color, Warm Results - Vital Signs Recent Vital Signs: Last Vital Signs Temp 98.6 F 12/29/16 13:50 Pulse 75 12/29/16 13:50 Resp 18 12/29/16 13:50 BP 126/71 12/29/16 13:50 Pulse Ox 99 12/29/16 06:00 - Labs Result Diagrams: 12/29/16 05:30 12/29/16 05:30 Labs: Laboratory Results - last 24 hr 12/28/16 12/29/16 12/29/16 15:30 05:30 05:30 WBC 6.1 RBC 3.98 Hgb 9.1 L Hct 29.0 L MCV 72.9 L MCH 22.9 L MCHC 31.4 RDW 16.3 H Plt Count 219 MPV 9.5 Gran % 67.4 Lymph % (Auto) 22.4 [place] % (Auto) 6.8 H Eos % (Auto) 2.6 Baso % (Auto) 0.8 Gran # 4.09 Lymph # 1.4 [place] # 0.4 Eos # 0.2 Baso # 0.05 Sodium 141 Potassium 4.1 Chloride 108 H Carbon Dioxide 24 Anion Gap 13 BUN 16 Creatinine 1.3 Est GFR ( Amer) > 60 Est GFR (Non-Af Amer) 57 Random Glucose 98 Calcium 8.4 Phosphorus 3.8 Magnesium 1.9 Total Bilirubin 0.7 AST 24 ALT 21 Alkaline Phosphatase 39 Total Protein 6.4 Albumin 3.7 Globulin 2.7 Albumin/Globulin Ratio 1.4 Triglycerides 73 Cholesterol 137 LDL Cholesterol Direct 65 HDL Cholesterol 61 H TSH 3rd Generation Urine Color Yellow Urine Appearance Clear Urine pH 6.0 Ur Specific [place] 1.010 Urine Protein Negative Urine Glucose (UA) Negative Urine Ketones Negative Urine Blood Negative Urine Nitrate Negative Urine Bilirubin Negative Urine Urobilinogen 0.2 Ur Leukocyte Esterase Negative 12/29/16 05:30 WBC RBC Hgb Hct MCV MCH MCHC RDW Plt Count MPV Gran % Lymph % (Auto) [place] % (Auto) Eos % (Auto) Baso % (Auto) Gran # Lymph # [place] # Eos # Baso # Sodium Potassium Chloride Carbon Dioxide Anion Gap BUN Creatinine Est GFR ( Amer) Est GFR (Non-Af Amer) Random Glucose Calcium Phosphorus Magnesium Total Bilirubin AST ALT Alkaline Phosphatase Total Protein Albumin Globulin Albumin/Globulin Ratio Triglycerides Cholesterol LDL Cholesterol Direct HDL Cholesterol TSH 3rd Generation 7.65 H Urine Color Urine Appearance Urine pH Ur Specific [place] Urine Protein Urine Glucose (UA) Urine Ketones Urine Blood Urine Nitrate Urine Bilirubin Urine Urobilinogen Ur Leukocyte Esterase Assessment & Plan - Assessment and Plan (Free Text) Assessment: 61M with history of internal and external hemorrhoids with rectal bleeding and anemia. Plan: - transfuse PRBCs as needed - scheduled for outpatient hemorrhoidectomy on 01/02/[address] Talley. Georgina Sahu PGY-2 <Trevon Talley - Last Filed: 12/30/16 10:25> Results - Vital Signs Recent Vital Signs: Last Vital Signs Temp 98.3 F 12/29/16 17:02 Pulse 74 12/29/16 17:02 Resp 18 12/29/16 17:02 BP 116/68 12/29/16 17:02 Pulse Ox 99 12/29/16 12:00 - Labs Result Diagrams: 12/29/16 05:30 12/29/16 05:30 Assessment & Plan - Assessment and Plan (Free Text) Assessment: Patient had bleeding per rectum for 5 years Flexible sigmoidoscopy reveals bleeding Int Hemorrhoids T/X 2 U PRBC with Hgb 9.1 Pt very unsure if he wants surgery 12/30(OR) or OPD Office 01/02 [facility] Transfuse 1 Unit PRBC/Start Miralax Pt tells wifwe he eants to go mome now Office Rubber banding scheduled Tuesday 01/02 This consult done under my direct supervision Lorrie Talley MD FACS
[2016-12-29 14:57] VITALS: TEMP 98.3
[2016-12-29] MEDS ORDERED: Peg-Electrolyte Oral Soln 4L (Golytely) PO ONE (16:00)
--- NOTE | 2016-12-29 16:26 | CARD ---
APPROVED REPORT EXAM: Two-dimensional and M-mode echocardiogram with Doppler and color Doppler. INDICATION Syncope 2D DIMENSIONS Left Atrium (2D)4.6 (1.6-4.0cm)IVSd1.2 (0.7-1.1cm) LVDd4.4 (3.9-5.9cm)PWd1.1 (0.7-1.1cm) LVDs2.9 (2.5-4.0cm)FS (%) 33.5 % LVEF (%)62.5 (>50%) M-Mode DIMENSIONS Aortic Root3.60 (2.2-3.7cm)Aortic Cusp Exc.1.90 (1.5-2.0cm) Aortic Valve AoV Peak Wkcrsayz248.0cm/Martine Peak GR.8mmHg Mitral Valve MV E Xlamplgm22.8cm/sMV A Zkzzzoib96.1cm/sE/A ratio1.3 TDI Lateral E' Peak V9.16cm/sMedial E' Peak V8.38cm/sE/Lateral E'10.2 E/Medial E'11.2 Pulmonary Valve PV Peak Gpvhjcvj93.6cm/sPV Peak Grad.2mmHg Tricuspid Valve TR Peak Oyybyfxv165ox/sRAP [id number] Peak Gr.29mmHg [id number] LEFT VENTRICLE The left ventricle is normal size. There is normal left ventricular wall thickness. The left ventricular function is normal.EF-60-65% There is normal LV segmental wall motion. The left ventricular diastolic function is normal. No left ventricle thrombus noted on this study. There is no ventricular septal defect visualized. There is no left ventricular aneurysm. There is no mass noted in the left ventricle. RIGHT VENTRICLE The right ventricle is normal size. There is normal right ventricular wall thickness. The right ventricular systolic function is normal. ATRIA The left atrium is mildly dilated. The right atrium size is normal. The interatrial septum is intact with no evidence for an atrial septal defect. AORTIC VALVE The aortic valve is thickened but opens well. There is trace aortic regurgitation. There is no aortic valvular stenosis. There is no aortic valvular vegetation. MITRAL VALVE The mitral valve is thickened but opens well. Mitral regurgitation is mild. There is no mitral valve stenosis. There is no evidence of mitral valve prolapse. TRICUSPID VALVE The tricuspid valve leaflets are thickened or calcified, but open well. There is mild tricuspid regurgitation.RVSP-39 mmof Hg. There is no tricuspid valve stenosis. There is no tricuspid valve prolapse or vegetation. PULMONIC VALVE The pulmonary valve is normal in structure. There is trace pulmonic valvular regurgitation. There is no pulmonic valvular stenosis. GREAT VESSELS The aortic root is normal in size. The ascending aorta is normal in size. The pulmonary artery is normal. The IVC is normal in size and collapses >50% with inspiration. PERICARDIAL EFFUSION There is no pleural effusion. There is no pericardial effusion. <Conclusion> The left ventricle is normal size. There is normal left ventricular wall thickness. The left ventricular function is normal.EF-60-65% There is trace aortic regurgitation. Mitral regurgitation is mild. There is mild tricuspid regurgitation.RVSP-39 mmof Hg. The IVC is normal in size and collapses >50% with inspiration. There is no pericardial effusion.
[2016-12-29 17:03] VITALS: BP 116/68; PULSE 74
--- NOTE | 2016-12-29 19:14 | PN ---
DATE: 12/29/2016 REASON FOR CONSULTATION: Addendum to the initial progress note dictated this morning. REASON FOR ADDENDUM: Asked by Rosario, nurse practitioner of Dr. Wise to clear the patient for possible colonoscopy and endoscopy. No evidence of acute AL. No evidence of chest pain. No evidence of arrhythmia or congestive heart failure. No absolute contraindication for endoscopy. The patient is cleared to go for endoscopy and colonoscopy with for the procedure. We will also transfuse 1 unit of packed RBC. We will get echo to rule out any structural heart disease and we will discontinue telemetry. Thank you Dr. Wise for providing me the opportunity in taking care of patient, William. Thank you Dr. Trivedi for the opportunity in taking care of patient, William. Audie Alvarez MD
--- NOTE | 2016-12-29 20:18 | PN ---
DATE: 12/29/2016 REASON FOR CONSULTATION: Follow up rectal bleed, dizziness, cardiac evaluation, rule out syncope. SUBJECTIVE: The patient denies any chest pain, but complained of bleed again this morning and feels dizzy and again bleed from the hemorrhoid. OBJECTIVE: GENERAL: Not feeling dizzy today, but feeling very weak, not in apparent distress. VITAL SIGNS: As follows: Temperature afebrile, heart rate 75, blood pressure 126/71. HEENT: PERRLA. Extraocular muscles intact. NECK: No carotid bruits or thyromegaly. CHEST: Clear to auscultation. HEART: S1 and S2 positive. ABDOMEN: Soft. EXTREMITIES: Clubbing and cyanosis negative. Orthostatics not obtained as of yet. LABORATORY DATA: Blood workup as follows: WBC 6.8, hemoglobin 9.2, hematocrit 29.0, platelet count 219. Chemistry shows sodium 141, potassium 4.0, chloride 108, carbon dioxide 21, anion gap of 13, BUN 16, creatinine is 1.3. TSH 7.56, total cholesterol 137, LDL 65, HDL 61. IMPRESSION: Hypothyroidism, anemia secondary to rectal bleed, syncope secondary to rectal bleed, rule out orthostatic hypotension, rule out any structural heart disease, very unlikely. No evidence of acute myocardial infarction. RECOMMENDATIONS: We will give 1 unit of packed RBC because the patient bled this morning. We will try to get orthostatic hypotension, kept orthostatic. We will discontinue telemetry. We will echo. Thank you Dr. Serra for providing us the opportunity in taking care of patient, Forrest Thomas. Audie Alvarez MD
--- NOTE | 2016-12-30 02:58 | DS ---
HISTORY OF PRESENT ILLNESS: The patient is a 61-year-old, seen and examined. The patient state, although I instructed him to go to emergency room on 12/20/2016, but he stated he started to feel better. Yesterday morning, he had another episode of rectal bleeding. He felt very dizzy, almost passed out that is why he came to the emergency room. He was given two blood transfusion, feeling a lot better. PHYSICAL EXAMINATION: VITAL SIGNS: He is afebrile, pulse 81, respirations 18, and blood pressure 119/84. LUNGS: Bilateral clear air flow. No rhonchi or crackles. HEART: S1 and S2 audible. ABDOMEN: Soft and nontender. No rebound. No guarding. NEUROLOGIC: The patient is awake and alert. Able to communicate. LABORATORY DATA: WBC 6.1, hemoglobin 9.1, hematocrit 29, and platelets of 219. Chemistry; sodium 141, potassium 4.1, chloride 108, CO2 of 24, BUN 16, and creatinine 1.3. Blood sugar of 98. Urinalysis is unremarkable. Had CT scan of the abdomen and pelvis done that showed non-obstructing renal calculus, bladder calculus versus . Clinical correlation is recommended. ASSESSMENT: 1. Symptomatic anemia secondary to rectal bleeding and that is because of his known history of hemorrhoids. 2. Hypertension. 3. Hyperlipidemia. 4. History of benign prostatic hypertrophy. PLAN: The patient is on laxatives. We will continue him on IV fluids. Currently, he is on liquid diet. I will discuss plan with Dr. Felton and Dr. Elizabeth. The patient had colonoscopy in 2012. We will have to figure out if he needs colonoscopy prior to clipping of his hemorrhoid, since this is the source of bleeding should be done before he goes for colonoscopy. I would recommend to have colonoscopy prior to the procedure, but I will discuss with other consultants. Milton Trivedi MD
[2016-12-30] MEDS ORDERED: Levothyroxine 25 MCG TAB PO SCH (06:00)
== END 2016-12-29 18:16 | disposition home or self-care (01) | DRG 395 ==
LOC: ED 10:51 → ERH 13:03 → 2RNO 16:34
PROVIDERS: ADMIT Internal Medicine; ATTEND Internal Medicine
PROC: 30233N1 Transfusion of Nonautologous Red Blood Cells into Peripheral Vein, Percutaneous Approach (ICD-10-PCS; principal; 2016-12-28)
DX: K64.8 Other hemorrhoids (principal); I10 Essential (primary) hypertension; K64.4 Residual hemorrhoidal skin tags; D50.0 Iron deficiency anemia secondary to blood loss (chronic); W19.XXXA Unspecified fall, initial encounter; E03.9 Hypothyroidism, unspecified; I95.1 Orthostatic hypotension; K21.9 Gastro-esophageal reflux disease without esophagitis; E78.00 Pure hypercholesterolemia, unspecified; E78.5 Hyperlipidemia, unspecified; M25.569 Pain in unspecified knee; K57.90 Diverticulosis of intestine, part unspecified, without perforation or abscess without bleeding; K59.00 Constipation, unspecified; M10.9 Gout, unspecified; N21.0 Calculus in bladder; N40.0 Benign prostatic hyperplasia without lower urinary tract symptoms; Y92.002 Bathroom of unspecified non-institutional (private) residence as the place of occurrence of the external cause; Z87.442 Personal history of urinary calculi

== ENCOUNTER 2017-02-21 13:08 | Observation (INO) | payer OTHER ==
[2017-02-21 13:25] VITALS: BMI 27.2
[2017-02-21] MEDS ORDERED: Sodium Chloride 0.9% 1,000 ML IV STA (13:27)
--- NOTE | 2017-02-21 14:04 | RAD ---
HISTORY: rout med exam COMPARISON: 12/28/2016 FINDINGS: LUNGS: Minimal linear opacity at the right lung base as seen on prior examination as well, likely linear scar. No infiltrate. PLEURA: No significant pleural effusion identified, no pneumothorax apparent. CARDIOVASCULAR: Normal. OSSEOUS STRUCTURES: No significant abnormalities. VISUALIZED UPPER ABDOMEN: Normal. OTHER FINDINGS: None. IMPRESSION: No active disease.
[2017-02-21 14:14] LABS: VENOUS BLOOD GAS BASE EXCESS -1.1 mmol/L (0.0-2.0); VENOUS BLOOD PH 7.33 (7.32-7.43)
[2017-02-21 14:15] LABS: BASO # 0.02 K/mm3 (0.0-2.0); BASO % 0.4 % (0.0-3.0); EOS # 0.1 (0.0-0.7); EOS % 1.6 % (1.5-5.0); GRAN # 3.25 (1.4-6.5); GRAN % 66.5 % (50.0-68.0); LYMPH # 1.2 (1.2-3.4); LYMPH % 25.4 % (22.0-35.0); MEAN CELL VOLUME 69.8 fl (80.0-105.0); MEAN CORPUSCULAR HEMOGLOBIN 20.9 pg (25.0-35.0); MEAN PLATELET VOLUME 10.1 fl (7.0-11.0); MONO # 0.3 (0.1-0.6); MONO % 6.1 % (1.0-6.0); WHITE BLOOD COUNT 4.9 10^3/ul (4.5-11.0)
--- NOTE | 2017-02-21 14:18 | ED PDOC ---
Arrival/HPI - General Chief Complaint: Syncope Time Seen by Provider: 02/21/17 13:23 Historian: Patient, EMS, Other - History of Present Illness Narrative History of Present Illness (Text): 02/21/17 14:09 A 61 year old male, whose past medical history includes hypertension, hyperlipidemia, and BPH, brought into the emergency department by EMS from urologist office for evaluation after transurethral needle ablation of the prostate. Urologist reports patient was feeling better and recovered well after surgery. He was given oral gentamicin, 250 250 propofol and cipro. 30 minutes after the procedure patient had a syncopal episode and appeared cold and clammy. EMS found patient with stabe vital signs and unremarkable 12 lead EKG. Patient currently complains of dizziness but denies any fever, chills, nausea, vomiting, abdominal pain, chest pain, shortness of breath or any other complaints. Time/Duration: Prior to Arrival Symptom Course: Unchanged Quality: Other Context: Other Past Medical History - Provider Review Nursing Documentation Reviewed: Yes - Cardiac Hx Cardiac Disorders: Yes (chronic intermittent chest pain) Hx Hypertension: Yes - Pulmonary Hx Respiratory Disorders: No - Neurological Hx Neurological Disorder: No - HEENT Hx HEENT Disorder: No - Renal Hx Renal Disorder: No Hx Kidney Stones: Yes ("yrs ago") - Endocrine/Metabolic Hx Endocrine Disorders: No - Hematological/Oncological Hx Blood Disorders: No Hx Anemia: Yes - Integumentary Hx Dermatological Disorder: No - Musculoskeletal/Rheumatological Hx Musculoskeletal Disorders: No Hx Falls: Yes (fell today in bathroom) - Gastrointestinal Hx Gastrointestinal Disorders: Yes (gastritis, hemorrhoids internal and external ) Other/Comment: rectal bleeding on and off x 5 yrs from hemorrhoids - Genitourinary/Gynecological Hx Genitourinary Disorders: No Hx Prostate Problems: Yes (elevated psa/enlarged/bx neg) - Psychiatric Hx Psychophysiologic Disorder: No Hx Substance Use: No - Anesthesia Hx Anesthesia: No Hx Anesthesia Reactions: No Hx Malignant Hyperthermia: No Family/Social History - Physician Review Nursing Documentation Reviewed: Yes Family/Social History: No Known Family HX Smoking Status: Never Smoked Hx Alcohol Use: No Hx Substance Use: No Allergies/Home Meds Allergies/Adverse Reactions: Allergies No Known Allergies Allergy (Verified 02/21/17 13:25) Home Medications: Home Meds Medication Instructions Recorded Confirmed Allopurinol [Zyloprim] 300 mg PO DAILY 12/28/16 12/28/16 Atenolol [Tenormin] 12.5 mg PO DAILY 12/28/16 12/28/16 Cholecalciferol [Vitamin D] 50,000 unit PO QWK 12/28/16 12/28/16 Diclofenac Sodium [Voltaren] 1 % TP TID 12/28/16 12/28/16 Enalapril Maleate [Vasotec] 10 mg PO DAILY 12/28/16 12/28/16 Meloxicam [Mobic] 15 mg PO DAILY 12/28/16 12/28/16 Proctozone 1 appl TOP BID 12/28/16 12/28/16 Simvastatin [Zocor] 20 mg PO DAILY 12/28/16 12/28/16 Tamsulosin [Flomax] 0.4 mg PO HS 12/28/16 12/29/16 Review of Systems - Physician Review All systems were reviewed & negative as marked: Yes - Review of Systems Constitutional: absent: Fevers, Night Sweats Respiratory: absent: SOB Cardiovascular: Syncope. absent: Chest Pain Gastrointestinal: absent: Abdominal Pain, Nausea, Vomiting Neurological: Dizziness Physical Exam Vital Signs Reviewed: Yes Vital Signs Temp Pulse Resp BP Pulse Ox 02/21/17 14:36 94.8 F L 02/21/17 13:28 97.9 F 67 19 137/81 99 Temperature: Afebrile Blood Pressure: Normal Pulse: Regular Respiratory Rate: Normal Appearance: Positive for: Non-Toxic, Comfortable, Other (Pale appearing) Pain Distress: None Mental Status: Positive for: Alert and Oriented X 3 - Systems Exam Head: Present: Atraumatic, Normocephalic Pupils: Present: PERRL Extroacular Muscles: Present: EOMI Conjunctiva: Present: Normal Mouth: Present: Moist Mucous Membranes Neck: Present: Normal Range of Motion Respiratory/Chest: Present: Clear to Auscultation, Good Air Exchange. No: Respiratory Distress, Accessory Muscle Use Cardiovascular: Present: Regular Rate and Rhythm, Normal S1, S2. No: Murmurs Abdomen: Present: Normal Bowel Sounds. No: Tenderness, Distention, Peritoneal Signs Back: Present: Normal Inspection Upper Extremity: Present: Normal Inspection. No: Cyanosis, Edema Lower Extremity: Present: Normal Inspection. No: Edema Neurological: Present: GCS=15, CN II-XII Intact, Speech Normal Skin: Present: Warm, Dry, Pale. No: Rashes Psychiatric: Present: Alert, Oriented x 3, Normal Insight, Normal Concentration Medical Decision Making ED Course and Treatment: 02/21/17 14:09 Impression: A 61 year old male brought in for syncopal episode after procedure. Patient currently complains of dizziness. Plan: -- Head CT -- Chest xray -- EKG -- Labs -- Blood and Urine culture -- Urinalysis -- IV fluids -- Reassess and disposition Progress Notes: EKG shows NSR at 62 BPM with no arrhythmogenic, no ischemic ST segments. Interpreted by me. Report Date : 02/21/2017 14:02:55 Procedure: Chest xray Dictator : Rob Gunn MD IMPRESSION: No active disease. Report Date : 02/21/2017 14:30:57 PROCEDURE: CT HEAD WITHOUT CONTRAST. Dictator : Cliff Ayers MD IMPRESSION: Normal CT of the Head. - Lab Interpretations Lab Results: 02/21/17 14:07 02/21/17 14:07 Lab Results 02/21/17 14:45: POC Glucose (mg/dL) 127 H 02/21/17 14:30: Urine Color Red, Urine Appearance Cloudy, Urine pH 6.5, Ur Specific [place] 1.015, Urine Protein >=300 H, Urine Glucose (UA) 100 H, Urine Ketones Trace H, Urine Blood Large H, Urine Nitrate Positive H, Urine Bilirubin Negative, Urine Urobilinogen 1.0 H, Ur Leukocyte Esterase Negative, Urine RBC Tntc, Urine WBC 1 - 3, Ur Epithelial Cells 0 - 2, Urine Bacteria Few 02/21/17 14:07: Sodium 139, Chloride 108 H, Potassium 4.2, Carbon Dioxide 21, Anion Gap 15, BUN 18, Creatinine 1.1, Est GFR ( Amer) > 60, Est GFR (Non- Af Amer) > 60, Random Glucose 119 H, Calcium 8.2 L, Total Bilirubin 0.7, AST 20 , ALT 27, Alkaline Phosphatase 44, Lactate Dehydrogenase 381, Total Creatine Kinase 131, Troponin I < 0.01, NT-Pro-B Natriuret Pep 72.0, Total Protein 6.8, Albumin 3.7, Globulin 3.0, Albumin/Globulin Ratio 1.2 02/21/17 14:07: pO2 43, VBG pH 7.33, VBG pCO2 48.0, VBG HCO3 25.3, VBG Total CO2 26.8, VBG O2 Sat (Calc) 80.1 H, VBG Base Excess -1.1 L, VBG Potassium 4.1, Sodium 140.0, Chloride 108.0 H, Glucose 123 H, Lactate 1.6, FiO2 21.0, Venous Blood Potassium 4.1 02/21/17 14:07: WBC 4.9, RBC 4.73, Hgb 9.9 L, Hct 33.0 L, MCV 69.8 L D, MCH 20.9 L, MCHC 30.0 L, RDW 19.0 H, Plt Count 192, MPV 10.1, Gran % 66.5, Lymph % ( Auto) 25.4, [place] % (Auto) 6.1 H, Eos % (Auto) 1.6, Baso % (Auto) 0.4, Gran # 3.25, Lymph # 1.2, [place] # 0.3, Eos # 0.1, Baso # 0.02 02/21/17 14:07: PT 11.3, INR 1.04, APTT 22.5 L I have reviewed the lab results: Yes - RAD Interpretation Radiology Orders: 02/21/17 13:26 CHEST PORTABLE [RAD] Stat 02/21/17 13:29 HEAD W/O CONTRAST [CT] Stat 02/21/17 15:16 ABDOMEN & PELVIS [ABD & PELVIS W/O PO OR IV CONT] [CT] Stat - Medication Orders Current Medication Orders: Vancomycin HCl (Vancomycin 1gm) 1 gm in 250 mls @ 167 mls/hr IVPB STAT STA PRN Reason: Protocol Stop: 02/21/17 16:44 Discontinued Medications Sodium Chloride (Sodium Chloride 0.9%) 1,000 mls @ 999 mls/hr IV .Q1H1M STA Stop: 02/21/17 14:27 Last Admin: 02/21/17 13:30 Dose: 999 mls/hr eMAR Start Stop Document 02/21/17 13:30 RG (Rec: 02/21/17 14:20 RG [id number]) Intravenous Solution Start Date 02/21/17 Start Time 13:30 End Date 02/21/17 - Scribe Statement The provider has reviewed the documentation as recorded by the Scribe Breann Angel Provider Claudio Attestation: All medical record entries made by the Scribe were at my direction and personally dictated by me. I have reviewed the chart and agree that the record accurately reflects my personal performance of the history, physical exam, medical decision making, and the department course for this patient. I have also personally directed, reviewed, and agree with the discharge instructions and disposition. Disposition/Present on Arrival - Present on Arrival Any Indicators Present on Arrival: No History of DVT/PE: No History of Uncontrolled Diabetes: No Urinary Catheter: No History of Decub. Ulcer: No History Surgical Site Infection Following: None - Disposition Have Diagnosis and Disposition been Completed?: Yes Diagnosis: Syncope and collapse, Hypothermia following anesthesia Disposition: HOSPITALIZED Disposition Time: 15:45 Patient Plan: Admission, Telemetry Condition: FAIR Discharge Instructions (ExitCare): Syncope (ED) Referrals: Milton Trivedi MD [Primary Care Provider] - Follow up with primary Forms: [place] (L[place]anese)
[2017-02-21 14:25] LABS: INR 1.04 (0.93-1.08); PARTIAL THROMBOPLASTIN TIME 22.5 Seconds (25.1-36.5)
[2017-02-21 14:32] LABS: ALB/GLOB RATIO 1.2 (1.1-1.8); ALKALINE PHOSPHATASE 44 U/L (38-126); ALT/SGPT 27 U/L (7-56); AST/SGOT 20 U/L (17-59); BILIRUBIN,TOTAL 0.7 mg/dL (0.2-1.3); BLOOD UREA NITROGEN 18 mg/dL (7-21); CALCIUM 8.2 mg/dL (8.4-10.5); CARBON DIOXIDE 21 mmol/L (21-33); CHLORIDE 108 mmol/L (98-107); GFR AFRICAN-AMERICAN > 60; GLUCOSE,RANDOM 119 mg/dL (70-110); POTASSIUM 4.2 mmol/L (3.6-5.0); SODIUM 139 mmol/L (132-148); TOTAL PROTEIN 6.8 g/dL (5.8-8.3)
--- NOTE | 2017-02-21 14:32 | CT ---
PROCEDURE: CT HEAD WITHOUT CONTRAST. HISTORY: syncope COMPARISON: None available. TECHNIQUE: Axial computed tomography images were obtained through the head/brain without intravenous contrast. Radiation dose: Total exam DLP = 775 mGy-cm. This CT exam was performed using one or more of the following dose reduction techniques: Automated exposure control, adjustment of the mA and/or kV according to patient size, and/or use of iterative reconstruction technique. FINDINGS: HEMORRHAGE: No intracranial hemorrhage. BRAIN: No mass effect or edema. No atrophy or chronic microvascular ischemic changes. VENTRICLES: Unremarkable. No hydrocephalus. CALVARIUM: Unremarkable. PARANASAL SINUSES: Unremarkable as visualized. No significant inflammatory changes. MASTOID AIR CELLS: Unremarkable as visualized. No inflammatory changes. OTHER FINDINGS: None. IMPRESSION: Normal CT of the Head.
[2017-02-21 14:44] LABS: TROPONIN I < 0.01 ng/mL
[2017-02-21 14:50] LABS: PH,URINE 6.5 (4.7-8.0); URINE BILIRUBIN NEGATIVE (NEGATIVE); URINE BLOOD LARGE (NEGATIVE); URINE GLUCOSE (UA) 100 mg/dL (NEGATIVE); URINE KETONE TRACE mg/dL (NEGATIVE); URINE LEUKOCYTE ESTERASE NEGATIVE Leu/uL (NEGATIVE); URINE PROTEIN >=300 mg/dL (<30 mg/dL)
[2017-02-21 14:51] LABS: URINE APPEARANCE CLOUDY (CLEAR); URINE COLOR RED (YELLOW)
[2017-02-21 14:52] LABS: URINE BACTERIA FEW (NEG); URINE EPITHELIAL CELLS 0 - 2 /hpf (0-5); URINE RBC TNTC /hpf (0-2)
[2017-02-21] MEDS ORDERED: Vancomycin 1gm in NS 250ml 1 GM/250 ML BAG IVPB STA (15:15)
[2017-02-21] MEDS ORDERED: Pneumococcal 23-Valent Vaccine IM ONE (21:30)
[2017-02-21] MEDS ORDERED: Influenza Vaccine 60 mcg/0.5 mL SYR (4YR UP) IM ONE (21:30)
--- NOTE | 2017-02-22 02:03 | HP ---
HISTORY OF PRESENT ILLNESS: The patient is a 61-year-old who was seen by Dr. Birmingham today. He has transurethral prostate procedure done. According to Dr. Birmingham, he did well, he was in the recovery, and after half an hour, he was given a snack and something to drink. All of a sudden, he states he does not feel good, he was pale, he was diaphoretic, and he is bradycardic, so ambulance was called and he was sent to emergency room for further evaluation. By that time, the patient reached the emergency room, he was doing well and complaint of feeling little lightheaded. The patient was given gentamicin and he was given propofol and Cipro. The patient denies any fever or chills. No nausea or vomiting. No diarrhea. He just feel lightheaded. PAST MEDICAL HISTORY: He has significant past medical history of: 1. Hypertension. 2. Hyperlipidemia. 3. Benign prostatic hypertrophy. He recently has hemorrhoidectomy done by Dr. Elizabeth. He also was found to be anemic and recently was given two blood transfusions. ALLERGIES: HE IS NOT ALLERGIC TO ANY MEDICATION. MEDICATIONS AT HOME: He is on atenolol 12.5 mg daily, enalapril 10 mg daily, and vitamin D. SOCIAL HISTORY: He is . He lives with his . Denies smoking, drinking, or alcohol use. REVIEW OF SYSTEMS: Significant for having generalized weakness. PHYSICAL EXAMINATION: GENERAL: He is awake, alert, oriented, and communicative. VITAL SIGNS: Hypothermic with temperature of 95.5, pulse 85, respirations 20, and blood pressure 133/83. LUNGS: Bilateral good airflow. No rhonchi or crackles. HEART: S1 and S2 audible. ABDOMEN: Soft and nontender. No rebound. No guarding. NEUROLOGICAL: He is awake, alert, oriented, and communicative. LABORATORY DATA: WBC is 4.9, hemoglobin 9.9, hematocrit 33, and platelets 192. PT 11.3, INR 1.04, and PTT 22.5. Chemistry: Sodium 139, potassium 4.2, chloride 108, CO2 of 21, BUN 18, creatinine 1.1, blood sugar of 127, and random blood sugar 119. ASSESSMENT: 1. Status post syncope, status post transurethral prostatic procedure because of benign prostatic hypertrophy. 2. Anemia. 3. Bradycardia. 4. History of hypertension. 5. Hyperlipidemia. 6. Recent hemorrhoidal band ligation done. PLAN: We will place the patient in observation. We will monitor his blood pressure. We will hold his atenolol. He was given vancomycin and I will start him on Rocephin. Blood culture and urine culture will be sent and Dr. Alvarez has been consulted. Milton Trivedi MD
--- NOTE | 2017-02-22 04:48 | CT ---
EXAM: CT Abdomen and Pelvis Without Intravenous Contrast CLINICAL HISTORY: 61 years old, male; Signs and symptoms; Other: Hematuria TECHNIQUE: Axial computed tomography images of the abdomen and pelvis without intravenous contrast. All CT scans at this facility use one or more dose reduction techniques, viz.: automated exposure control; ma/kV adjustment per patient size (including targeted exams where dose is matched to indication; i.e. head); or iterative reconstruction technique. Coronal and sagittal reformatted images were created and reviewed. COMPARISON: CT - ABD PELVIS PO CONTRAST ONLY 2016-12-28 23:12 FINDINGS: Limitations: Motion artifact - mild. Lower thorax: Mild cardiomegaly. Minimal atelectasis/scarring. Small hiatal hernia. ABDOMEN: Liver: Unremarkable. Gallbladder and bile ducts: No calcified stones. No ductal dilation. Pancreas: Unremarkable. No ductal dilation. Spleen: No splenomegaly. Adrenals: No mass. Kidneys and ureters: Probable RIGHT renal cyst. Several renal calculi.No hydronephrosis. Stomach and bowel: Segmental areas of probable underdistention of colon. No definite mural thickening. No obstruction. Appendix: No findings to suggest acute appendicitis. PELVIS: Bladder: Collapsed bladder around Edwards catheter 0.8 x 0.7 by 0.9 cm calculus versus calcified lesion along RIGHT posterior wall of bladder, grossly stable. Mild haziness about bladder. Trace fluid within pelvis anterior to bladder. Reproductive: Enlarged prostate gland. ABDOMEN and PELVIS: Intraperitoneal space: No free air. Bones/joints: Degenerative changes of spine. No acute fracture. Soft tissues: Small RIGHT inguinal hernia containing fat. Vasculature: Mild atherosclerotic disease. No aneurysm. Lymph nodes: Multiple calcifications or calcified lymph nodes within mesentery. IMPRESSION: 1. Nonobstructing renal calculi. 2. Haziness about bladder. Correlate with urinalysis to exclude infection. 3. Bladder calculus vs calcified lesion. Clinical correlation is needed. 4. Prostate enlargement. Followup as clinically warranted. 5. Incidental/non-acute findings are described above.
[2017-02-22 05:57] VITALS: O2SAT 97
[2017-02-22 06:37] LABS: BASO # 0.01 K/mm3 (0.0-2.0); BASO % 0.1 % (0.0-3.0); EOS # 0.1 (0.0-0.7); EOS % 0.7 % (1.5-5.0); GRAN # 6.62 (1.4-6.5); GRAN % 80.9 % (50.0-68.0); HEMATOCRIT 33.5 % (42.0-52.0); LYMPH % 11.9 % (22.0-35.0); MEAN CELL VOLUME 68.4 fl (80.0-105.0); MEAN CORPUSCULAR HEMOGLOBIN 20.8 pg (25.0-35.0); MEAN CORPUSCULAR HGB CONC 30.4 g/dl (31.0-37.0); MEAN PLATELET VOLUME 9.4 fl (7.0-11.0); MONO # 0.5 (0.1-0.6); MONO % 6.4 % (1.0-6.0); WHITE BLOOD COUNT 8.2 10^3/ul (4.5-11.0)
[2017-02-22 06:46] LABS: ALB/GLOB RATIO 1.3 (1.1-1.8); ALKALINE PHOSPHATASE 41 U/L (38-126); ALT/SGPT 22 U/L (7-56); AST/SGOT 22 U/L (17-59); BILIRUBIN,TOTAL 0.8 mg/dL (0.2-1.3); BLOOD UREA NITROGEN 15 mg/dL (7-21); CALCIUM 8.4 mg/dL (8.4-10.5); CARBON DIOXIDE 23 mmol/L (21-33); CHLORIDE 106 mmol/L (98-107); GFR AFRICAN-AMERICAN > 60; GLUCOSE,RANDOM 107 mg/dL (70-110); POTASSIUM 3.9 mmol/L (3.6-5.0); SODIUM 138 mmol/L (132-148); TOTAL PROTEIN 6.6 g/dL (5.8-8.3)
--- NOTE | 2017-02-22 07:43 | CARD ---
APPROVED REPORT EKG Measurement Heart [id number] NH [id number] [id number] <Conclusion> Normal sinus rhythm Normal ECG
[2017-02-22] MEDS ORDERED: cefTRIAXone 1 gm 1 GM/100 ML BAG IVPB SCH ×2 (10:00)
[2017-02-22 12:45] VITALS: BP 125/80; PULSE 89; RESP 22; TEMP 98.2
--- NOTE | 2017-02-22 19:16 | CON ---
DATE: 02/22/2017 REASON FOR CONSULTATION: Syncope. HISTORY OF PRESENT ILLNESS: The patient is a 61-year-old male who had transurethral procedure done on prostate by Dr. Birmingham in [facility]. Following the procedure, the patient became conscious, alert, and he was found to be suddenly becoming dizzy, diaphoretic, and he passed out. He also had episode of bradycardia associated with his passing out. The patient states after that he also felt nausea. The patient denies any chest pain, palpitations, or shortness of breath associated with these episodes. PAST MEDICAL HISTORY: Positive for hypertension, hyperlipidemia, benign prostatic hypertrophy, status post transurethral surgery for enlarged prostate, and history of hemorrhoidectomy by Dr. Elizabeth. On last admission in 12/2016, the patient had anemia and had to be given blood transfusions. ALLERGIES: THE PATIENT DENIES ANY ALLERGIES. MEDICATIONS AT HOME: The patient was on enalapril 10 mg daily and atenolol 12.5 mg daily. PERSONAL HISTORY: Denies any smoking or drinking. REVIEW OF SYSTEMS: All other systems reviewed. Positives mentioned in the history, otherwise negative. PHYSICAL EXAMINATION: VITAL SIGNS: Blood pressure 109/63, respirations 20, pulse 77, and temperature 99.1. HEENT: Head is normocephalic. Eyes: Pupils normal. Conjunctivae slightly pale. NECK: JVP low. Carotid equal. THORAX: AP diameter normal. LUNGS: Clear. CARDIOVASCULAR: S1 and S2. ABDOMEN: Soft. Bowel sounds normal. EXTREMITIES: No clubbing. No cyanosis. LABORATORY DATA: Shows WBC 8.2, hemoglobin 10.2, hematocrit 33.5, and platelet 194. Sodium 138, potassium 3.9, BUN 15, creatinine 1.1, and sugar 107. AST and ALT normal. Total protein and albumin normal. EKG showed normal sinus rhythm. Chest x-ray minimal linear opacity at the right lung base, which was also present on the previous x-rays and there was no significant abnormality. CAT scan of the head showed normal. Abdominal and pelvic CAT scan showed nonobstructive renal calculi, prostate enlargement, haziness urinalysis to rule out infection. Bladder calculus versus calcified lesion. Clinical correlation recommended. The patient had echocardiogram on 12/29/2016, it shows LV size was normal, LV systolic function normal with ejection fraction of 60% to 65%, mild mitral regurg, mild tricuspid regurg with RVSP of 39 mmHg, and trace aortic regurg. DIAGNOSES: Syncope following transurethral procedure of the prostate, probably vasovagal; anemia; hypertension; and history of hyperlipidemia. The patient's blood pressure was already taken three positions and it did not show any postural hypotension. PLAN: The patient is on Flomax 0.4 daily, Lipitor 20 daily, Rocephin 1 g IV daily, lisinopril 10 mg daily, and Zyloprim 300 mg p.o. daily. We will continue that and if the patient goes home, we will do stress test as an outpatient. Instructions will be given to the patient. We will follow with you. Audie Napier MD
--- NOTE | 2017-02-22 23:22 | DS ---
HISTORY AND HOSPITAL COURSE: The patient is a 61-year-old male who is seen and examined. The patient sates he feels well. No nausea or vomiting. No diarrhea. No dizziness. Eating and tolerating. No fever. No chills. PHYSICAL EXAMINATION: VITAL SIGNS: He is afebrile. Pulse is 89, respirations are 22, and blood pressure is 125/80. Bilateral fair airflow. No rhonchi or crackles. HEART: S1 and S2 audible. ABDOMEN: Soft and nontender. No rebound and no guarding. NEUROLOGIC: The patient is awake, alert, oriented, and able to communicate, ambulatory. GENITOURINARY: He has urine leg bag that is draining clear urine. LABORATORY DATA: WBC of 8.2, hemoglobin of 10.2, hematocrit of 33.5, and platelets of 194. Chemistry: Sodium of 138, potassium of 3.9, chloride of 106, CO2 of 23, BUN of 15, creatinine of 1.1, and blood sugar of 107. DIAGNOSTIC DATA: He had CT scan of the abdomen and pelvis done that is unremarkable. CT scan of the head is negative. ASSESSMENT AND PLAN 1. Status post syncope, post-procedure. 2. Status post transurethral prostatic procedure. 3. Status post hemorrhoidectomy and anemia. 4. History of hypertension. PLAN: The patient is going to be discharged home today. He is doing well. He is hemodynamically stable and he will follow up with me in office in a week and he will follow up with Dr. Birmingham tomorrow morning 9:30 who will remove his Edwards catheter. Milton Trivedi MD
== END 2017-02-22 15:15 | disposition home or self-care (01) ==
LOC: ED 13:08 → ERH 15:39 → 3RSO 17:55
PROVIDERS: ADMIT Internal Medicine; ATTEND Internal Medicine
DX: I10 Essential (primary) hypertension (principal); E78.5 Hyperlipidemia, unspecified; N40.0 Benign prostatic hyperplasia without lower urinary tract symptoms; D64.9 Anemia, unspecified; I08.3 Combined rheumatic disorders of mitral, aortic and tricuspid valves; Z79.1 Long term (current) use of non-steroidal anti-inflammatories (NSAID); Z79.899 Other long term (current) drug therapy; Z87.442 Personal history of urinary calculi
CPT/HCPCS: 36415; 70450; 71010; 74176; 80053; 81001; 82550; 82803; 82948; 83615; 83880; 84484; 85025; 85610; 85730; 87040; 87086; 93005; 99285; G0378; J0696; J7040